=== PATIENT | female | born 1960 | race Caucasian/White ===

== ENCOUNTER → 2017-01-13 18:23 | Outpatient (CLI) | payer BC ==
[2015-04-20 10:05] VITALS: BMI 26.5
[~2017-01-13 18:23] MED LIST: HYDROCODONE-APA1 TAB PO; PRILOSEC10 MG PO; VIVELLE-DOT 00.05 MG TD
== END | disposition home or self-care (01) ==
LOC: D.MAMMO 11:15
DX: Z12.31 Encounter for screening mammogram for malignant neoplasm of breast (principal)

== ENCOUNTER → 2018-04-01 21:20 | Outpatient (CLI) | payer BC ==
[2015-04-20 10:05] VITALS: BMI 26.5
== END | disposition home or self-care (01) ==
LOC: D.MAMMO 15:00
DX: Z12.31 Encounter for screening mammogram for malignant neoplasm of breast (principal)

== ENCOUNTER → 2018-04-29 22:26 | Outpatient (CLI) | payer BC ==
[2015-04-20 10:05] VITALS: BMI 26.5
== END | disposition home or self-care (01) ==
LOC: D.MAMMO 14:30
DX: R92.8 Other abnormal and inconclusive findings on diagnostic imaging of breast (principal)

== ENCOUNTER 2018-10-19 12:30 | Outpatient (CLI) | payer BC ==
[2015-04-20 10:05] VITALS: BMI 26.5
== END 2018-10-19 16:45 | disposition home or self-care (01) ==
LOC: D.MAMMO 12:30
PROVIDERS: ATTEND Family Medicine
DX: R92.8 Other abnormal and inconclusive findings on diagnostic imaging of breast (principal)

== ENCOUNTER 2020-11-01 16:15 | Outpatient (CLI) | payer BC ==
[2015-04-20 10:05] VITALS: BMI 26.5
== END 2020-11-01 23:59 | disposition home or self-care (01) ==
LOC: D.MAMMO 16:15
PROVIDERS: ATTEND Family Medicine
DX: Z12.31 Encounter for screening mammogram for malignant neoplasm of breast (principal)